=== PATIENT | female | born 1975 | race Caucasian/White ===

== ENCOUNTER 2021-05-13 11:57 | Emergency (ER) | payer BC, SELFPAY ==
[2021-05-13 12:20] VITALS: BP 124/65; PULSE 58; RESP 14; TEMP 36.4; O2SAT 99; BMI 29.1
--- NOTE | 2021-05-13 12:57 | CT_ITS ---
WS: [id number] CT LUMBAR SPINE, noncontrast. HISTORY: low back injury with pain TECHNIQUE: Contiguous 2.5 mm axial imaging are performed. Sagittal and coronal reformats are submitte d and reviewed. All CT scans at [facility] use at least one of these dose optimization techni ques: automated exposure control; mA and/or kV adjustment per patient size (includes targeted exams w here dose is matched to clinical indication); or iterative reconstruction. IV contrast: None DLP: 1925.02 mGy.cm COMPARISON: None available. Very mild curvature of the lumbar spine may be due to spasm. The posterior alignment is normal. No yaneli mbar spine fracture is identified. Pedicles are intact. L1-2: Normal. L2-3: Normal. L3-4: Mild disc bulging. No stenosis. L4-5: Mild annular disc bulging without a focal protrusion. Mild ligamentum flavum and facet arthriti s. There is very mild central and subarticular recess narrowing. Mild encroachment upon the traversin g L5 nerve roots. L5-S1: Very small central disc protrusion and mild annular disc bulging. There is very minimal disc c ontact on the S1 nerve roots bilaterally. Visualized retroperitoneum is negative. There is an IUD present. CT/CT lumbar spine wo con* [id number] IMPRESSION: 1. No lumbar spine fracture or high-grade stenosis. 2. Mild central and subarticular recess stenosis at L4-5. Slight encroachment upon the L5 nerve roots. 3. Very minimal disc contact on the S1 nerve roots bilaterally.
--- NOTE | 2021-05-13 12:58 | ED_ITS ---
HPI - Back Pain/Injury General: Chief Complaint: Back Pain/Injury Stated Complaint: back pain Time Seen by Provider: 05/13/21 12:29 History of Present Illness: Patient is a 45-year-old female comes to the ED with lower back injury. Injury occurred on Tuesday. She injured back when she was pulling a potted plant that was heavy out from her vehicle. She was leaning in when she went to pull on the pot she felt pain in the middle of the lower back. She has been having pain in the mid lower back for the past several days now and with no improvements. She has taken Celebrex for pain and it has not helped much. She denies any pain radiating down her legs. She says the pain s tays in the middle of her lower back. Denies any lower extremity weakness, pelvic anesthesia or bladder or bowel incontinence. Associated symptoms: Deny abdominal pain, chills, dysuria, fatigue, fever(s), hematuria, nausea or vomiting Review of Systems Const: Denies: fever(s), chills or fatigue Eyes: Denies: change in vision or eye discomfort ENMT: Denies: throat pain, odynophagia, nasal discharge or nasal congestion Card: Denies: chest pain, palpitations, edema, swelling of feet/ankles, dyspnea on exertion or orthopnea Resp: Denies: dyspnea, productive cough or non-productive cough GI: Denies: abdominal pain, nausea, vomiting, diarrhea, constipation or hematochezia : Denies: flank pain, dysuria or hematuria Musc: Reports: back pain; Denies: neck pain or extremity swelling Skin/Breast: Denies: rash or new lesions Neuro: Denies: headache(s), numbness in extremities or weakness in extremities PFSH ED PFSH: Medical History (Updated 05/14/21 @ 12:26 by SHYANNE Garcia) No pertinent family history Surgical History (Updated 05/14/21 @ 12:26 by SHYANNE Garcia) No pertinent past surgical history Physical Exam Const: COMMON NORMALS: no acute distress, patient oriented x3, healthy appearing and alert GENERAL APPEARANCE: cooperative and comfortable HENMT: COMMON NORMALS: normocephalic HEAD & SCALP: normocephalic MOUTH: Normal oral and palatal mucosa present THROAT: posterior oropharynx normal and uvula midline Neck/C-Spine: COMMON NORMALS: supple GENERAL: Yes normal visual inspection Resp: COMMON NORMALS: normal respiratory effort, No retractions, No use of accessory muscles and clear to auscultation bilaterally AUSCULTATION: clear to auscultation bilaterally Cardio: COMMON NORMALS: regular rate, regular rhythm, S1 normal heart sound present, S2 normal heart sound present, No gallops present (Cardio), No clicks present (Cardio), No murmurs present (Cardio) and Peripheral pulses 2+ throughout RATE: regular rate RHYTHM: regular rhythm HEART SOUNDS: S1 normal heart sound present and S2 normal heart sound present PERIPHERAL PULSES: Peripheral pulses 2+ throughout GI: COMMON NORMALS: Normal to inspection, nondistended, normoactive bowel sounds present, Soft to palpation, non-tender and no masses PALPATION: Yes Soft to palpation : COMMON NORMALS: Yes no CVA tenderness BLADDER/KIDNEY EXAM: Yes no CVA tenderness Back/Pelvis: COMMON NORMALS: no CVA tenderness LUMBAR SPINE/LOWER BACK: Yes pain with ROM, Yes lumbar spinal tenderness Lumbar spinal tenderness location: L4 and L5 and Yes paraspinal muscle tenderness Lumbar paraspinal muscle tenderness: bilateral Extremity: COMMON NORMALS: normal to inspection and no pedal edema Neuro: COMMON NORMALS: patient oriented x3 and moves all extremities SENSORIUM/ORIENTATION: Yes alert Skin: GENERAL SKIN EXAM: dry skin Course Vital Signs: Vital signs: Vital Signs Temperature 97.6 F 05/13/21 12:20 Pulse Rate 58 L 05/13/21 12:20 Respiratory Rate 14 05/13/21 12:20 Blood Pressure 124/65 05/13/21 12:20 Pulse Oximetry 99 05/13/21 12:20 MDM - Back Pain/Injury Medical Decision Making Patient is a 45-year-old female who comes to the ED with a lower back injury. Denies any cauda equina symptoms. Vitals are stable. Patient has some lumbar spinal tenderness and paraspinal muscle tenderness around L4 and L5. CT of lumbar spine showed no acute fractures or findings. Patient diagnosed with a strain of lumbar region and discharged home with a prescription for Celebrex and Flexeril. She was told to follow-up with her PCP in the next 7 to 10 days for reevaluation. Return to ED precautions given. Patient understood agree with plan. Labs Radiology Impressions Lumbar Spine CT 05/13/21 12:57 IMPRESSION: 1. No lumbar spine fracture or high-grade stenosis. 2. Mild central and subarticular recess stenosis at L4-5. Slight encroachment upon the L5 nerve roots. 3. Very minimal disc contact on the S1 nerve roots bilaterally. Discharge Plan Discharge Patient Disposition: Home Clinical Impression: Strain of lumbar region Qualifiers: Encounter type: initial encounter Qualified Code(s): S39.012A - Strain of muscle, fascia and tendon of lower back, initial encounter Condition: Stable Prescriptions: New Celebrex 100 mg capsule 100 mg PO BID PRN (Reason: pain) Qty: 30 0RF cyclobenzaprine 7.5 mg tablet 7.5 mg PO BID PRN (Reason: muscle spasm) Qty: 20 0RF Discharge Orders: Discharge ED (Routine); Ordered 05/13/21 Ordered By: Rip Cedeño Discharge Diet: Regular Discharge Activity: Increase activity as tolerated Patient Instructions: Low Back Strain (ED), Acute Low Back Pain (ED) Activity Restrictions/Additional Instructions: Follow-up with medical provider as directed in the next 5 to 7 days reevaluation.Take medications as prescribed. Apply cold pack on lower back and stretch lower back daily. Cyclobenzaprine is a muscle relaxer and can cause some drowsiness so take at night before going to bed. Return to the ER or your medical provider if condition worsens. Please read and understand discharge instructions. Thank you for choosing [facility] for your healthcare needs today. Please realize this is an emergency room and that we are providing you with a medical screening exam and this may not be complete and all inclusive of all the testing and or work up that you may need to determine your ailment or severity of your illness. It is very important that you follow up as instructed or that you return to the Emergency Department should you have concerns or if your condition changes or worsens in any way. Coding Level of Care Code ED Pricing Strategist for Delaney Zhang Exam Comprehensive
[2021-05-13] MEDS: ketorolac 60 mg/2 mL INJ IM (14:05)
[2021-05-13] MEDS: orphenadrine 30 mg/mL Inj 2 mL 60 MG IM (14:06)
== END 2021-05-13 14:35 | disposition home or self-care (01) ==
PROVIDERS: Emergency Provider Physician Assistant
DX: S33.5XXA Sprain of ligaments of lumbar spine, initial encounter (principal); X50.0XXA Overexertion from strenuous movement or load, initial encounter
CPT/HCPCS: 72131; 96372; 99285; J1885; J2360

== ENCOUNTER 2021-07-22 16:01 | Emergency (ER) | payer BC, SELFPAY ==
--- NOTE | 2021-07-22 16:03 | CTR_ITS ---
PROCEDURE INFORMATION: Exam: CT Cervical Spine Without Contrast Exam date and time: 07/22/2021 5:20 PM Age: 45 years old Clinical indication: Injury or trauma; Fall and other: From horse; Blunt trauma; Additional info: Horse accident TECHNIQUE: Imaging protocol: Computed tomography images of the cervical spine without contrast. Axial, coronal and sagittal reformatted images were created and reviewed. Radiation optimization: All CT scans at this facility use at least one of these dose optimization techniques: automated exposure control; mA and/or kV adjustment per patient size (includes targeted exams where dose is matched to clinical indication); or iterative reconstruction. COMPARISON: CT head wo con* [id number] 07/22/2021 5:17 PM RADIATION DOSE METRICS: Total DLP (mGy-cm): 581.11 FINDINGS: Bones/joints: Straightening of the normal cervical lordosis. No CT evidence of acute fracture, dislocation or subluxation. Alignment anatomic. Minimal levoscoliosis. Vertebral body heights maintained. Discs/Spinal canal/Neural foramina: Intervertebral disc spaces preserved. No significant spinal canal or neural foraminal stenosis. Lungs: Grossly unremarkable. Soft tissues: Grossly unremarkable. CT/CT cervical spin wo con* [id number] [address]ION: 1[address] No CT evidence of acute cervical spine traumatic injury. 2. Additional findings, as above.
--- NOTE | 2021-07-22 16:03 | CTR_ITS ---
PROCEDURE INFORMATION: Exam: CT Head Without Contrast Exam date and time: 07/22/2021 5:17 PM Age: 45 years old Clinical indication: Injury or trauma; Fall; Blunt trauma (contusions or hematomas); Additional info: Horse accident TECHNIQUE: Imaging protocol: Computed tomography of the head without contrast. Axial, coronal and sagittal reformatted images were created and reviewed. Radiation optimization: All CT scans at this facility use at least one of these dose optimization techniques: automated exposure control; mA and/or kV adjustment per patient size (includes targeted exams where dose is matched to clinical indication); or iterative reconstruction. COMPARISON: No relevant prior studies available. RADIATION DOSE METRICS: Total DLP (mGy-cm): 815.07 FINDINGS: Brain: No CT evidence of acute intracranial hemorrhage or acute territorial infarction. No significant mass effect or midline shift. Basal cisterns patent. Cerebral ventricles: Normal in size and configuration. Paranasal sinuses: Comminuted, mildly displaced fracture of the right superior orbital rim, extending to the right frontal sinus. Mild ethmoid mucosal thickening. Small right maxillary sinus polyp versus mucous retention cyst. Small amount of dependent blood products in the right maxillary sinus. Mastoid air cells: Grossly unremarkable. Bones/joints: No acute osseous abnormality. Soft tissues: Right periorbital soft tissue injury. CT/CT head wo con* [id number] [address]PRESSION: 1. No CT evidence of acute intracranial pathology. 2. Comminuted, mildly displaced fracture of the right superior orbital rim, extending to the right frontal sinus. 3. Additional findings, as above.
--- NOTE | 2021-07-22 16:03 | CTR_ITS ---
PROCEDURE INFORMATION: Exam: CT Maxillofacial Without Contrast Exam date and time: 07/22/2021 5:23 PM Age: 45 years old Clinical indication: Injury or trauma; Fall and other: From horse; Blunt trauma (contusions or hematomas); Head/scalp; Without loss of consciousness; Additional info: Horse accident TECHNIQUE: Imaging protocol: Computed tomography images of the face without contrast. Axial, coronal and sagittal reformatted images were created and reviewed. Radiation optimization: All CT scans at this facility use at least one of these dose optimization techniques: automated exposure control; mA and/or kV adjustment per patient size (includes targeted exams where dose is matched to clinical indication); or iterative reconstruction. COMPARISON: CT head wo con* [id number] 07/22/2021 5:17 PM RADIATION DOSE METRICS: Total DLP (mGy-cm): 764.56 FINDINGS: Orbital cavities: Globes intact. No retrobulbar abnormality. Bones/joints: Comminuted, mildly displaced fracture of the right superior orbital rim, extending to the right frontal sinus. Paranasal sinuses: Mild ethmoid mucosal thickening. Small right maxillary sinus polyp versus mucous retention cyst. Small amount of dependent blood products in the right maxillary sinus. Soft tissues: Right periorbital soft tissue injury. CT/CT facial bones wo con* [id number] IMPRESSION: 1. Comminuted, mildly displaced fracture of the right superior orbital rim, extending to the right frontal sinus. 2. Additional findings, as above.
[2021-07-22 16:09] VITALS: BP 134/98; PULSE 66; RESP 14; TEMP 36.8; O2SAT 100; BMI 29.1
--- NOTE | 2021-07-22 16:29 | ED_ITS ---
HPI - Head Injury General: Chief complaint: Head Injury Stated complaint: Head and eye kicked by horse, Bleeding bad Time Seen by Provider: 07/22/21 16:09 Source: patient Mode of arrival: ambulatory Limitations: no limitations History of Present Illness: 45-year-old female presents to the emergency room after an encounter with a horse. In talking to her it sounds like she was head butted essentially by the horse. Nurses notes that she was kicked in the triage section however when I talked to her specifically asked her directly if she was kicked her head and had it was more like a head but the horse reared up head caught her on her right thigh. She nearly blacked out but she was within enough to keep control the worst keep her from hurting her any further. She is also complaining of some right wrist pain. MD Complaint: head injury Onset (ago): minute(s) (30) Mechanism of Injury: other (Encounter large animal.) Place: home Loss of Consciousness: yes Location of injury: face Severity: moderate Radiation: none Other Injuries: none Associated symptoms: Deny amnesia, confusion, nausea, neck pain, numbness, sy ncope, tingling, vertigo, visual changes, vomiting or weakness Review of Systems Const: Denies: fever(s), chills, body aches, change in appetite, fatigue or malaise ENMT: Denies: throat pain, ear or mastoid pain, nasal discharge or nasal congestion Card: Denies: syncope Resp: Denies: dyspnea, productive cough or non-productive cough GI: Denies: nausea or vomiting : Denies: flank pain, difficulty voiding, dysuria, urinary frequency or urinary urgency Musc: Denies: neck pain Skin/Breast: Denies: rash or pruritus Neuro: Denies: vertigo or confusion PFS ED PFSH: Medical History No pertinent family history Surgical History No pertinent past surgical history Social History Smoking and tobacco status: never smoked Physical Exam Const: COMMON NORMALS: no acute distress GENERAL APPEARANCE: cooperative and comfortable ORIENTATION/CONSCIOUSNESS: Yes awake, Yes oriented to person, Yes oriented to place and Yes oriented to time HENMT: COMMON NORMALS: normocephalic, atraumatic, hearing grossly normal bilaterally, external ears normal, EAC's normal, TM's normal bilaterally, Normal nasal mucous membranes and turbinates present, moist oral mucous membranes and oropharynx normal HEAD & SCALP: normocephalic and atraumatic NOSE: Normal nasal mucous membranes and turbinates present EXTERNAL EAR: Yes external ears normal EXTERNAL AUDITORY CANAL: EAC's normal TYMPANIC MEMBRANE: TM's normal bilaterally Eye: COMMON NORMALS: Equal, round and reactive pupils present, EOMs intact bilaterally, conjunctivae normal and no scleral icterus CONJUNCTIVA: Yes conjunctivae normal PUPIL: Yes Equal, round and reactive pupils present Neck/C-Spine: COMMON NORMALS: full ROM, no lymphadenopathy, supple and no JVD Resp: COMMON NORMALS: normal respiratory effort, No retractions, No use of accessory muscles and clear to auscultation bilaterally AUSCULTATION: clear to auscultation bilaterally Cardio: COMMON NORMALS: no JVD, regular rate, regular rhythm and No murmurs pr esent (Cardio) RATE: regular rate RHYTHM: regular rhythm GI: COMMON NORMALS: Soft to palpation and No hepatosplenomegaly present AUSCULTATION: Yes normoactive bowel sounds PALPATION: Yes Soft to palpation, No Tenderness to palpation present (GI), No Guarding due to palpation present (GI) and Yes No hepatosplenomegaly present Extremity: COMMON NORMALS: normal to inspection, capillary refill normal, no clubbing, cyanosis or edema, no calf tenderness and no pedal edema Neuro: SENSORIUM/ORIENTATION: Yes oriented to person, Yes oriented to place and Yes oriented to time Skin: COMMON NORMALS: no rashes or lesions noted GENERAL SKIN EXAM: no rashes or lesions noted Procedures Laceration Laceration 1: Site: face (Right upper eyelid) Side (If applicable): right Size (cm): 3 Description: irregular Depth: simple, single layer Pre-repair: irrigated extensively Skin layer closed with: nylon Size (cm): 6-0 Technique: simple, interrupted Procedural Sedation Indication: laceration repair IV Etomidate dose (mg): 10 Patient Tolerated Procedure: well Complications: none Course Vital Signs: Vital signs: Vital Signs Temperature 98.2 F 07/22/21 16:09 Pulse Rate 66 07/22/21 16:09 Respiratory Rate 12 07/22/21 18:37 Blood Pressure 134/98 07/22/21 16:09 Pulse Oximetry 100 07/22/21 18:37 MDM - Head Injury Medcial Decision Making Patient reports she had problems with stitches in the past and was very worried about getting them. I was concerned about instilling lidocaine in the area and distorting the tissue making it difficult to approximate well laceration repaired under conscious sedation with etomidate patient tolerated well wound care instructions given she does have a supraorbital ridge fractures we will have her follow-up with ENT and ophthalmology. Lab Data : 07/22/21 16:32 07/22/21 16:32 Radiology Impressions Cervical Spine CT 07/22/21 16:03 IMPRESSION: 1. No CT evidence of acute cervical spine traumatic injury. 2. Additional findings, as above. Face CT 07/22/21 16:03 IMPRESSION: 1. Comminuted, mildly displaced fracture of the right superior orbital rim, extending to the right frontal sinus. 2. Additional findings, as above. Head CT 07/22/21 16:03 IMPRESSION: 1. No CT evidence of acute intracranial pathology. 2. Comminuted, mildly displaced fracture of the right superior orbital rim, extending to the right frontal sinus. 3. Additional findings, as above. Wrist X-Ray 07/22/21 16:35 IMPRESSION: No acute findings. Finger X-Ray 07/22/21 18:01 IMPRESSION: Thumb metacarpal fracture, as described above. Laboratory Results WBC 7.1 10^3/uL (4.0-10.0) 07/22/21 16:32 RBC 4.50 10^6/uL (4.1-5.3) 07/22/21 16:32 Hgb 13.9 g/dL (11.5-15.3) 07/22/21 16: Hct 42.3 % (37.0-47.0) 07/22/21 16: MCV 94.0 fl (81-99) 07/22/21 16:32 MCH 30.9 pg (28.0-34.0) 07/22/21 16: MCHC 32.9 g/dL (30.0-36.0) 07/22/21 16: RDW 12.0 % (12.1-15.1) L 07/22/21 16:32 Plt Count 214 10^3/cmm (130-400) 07/22/21 16:32 MPV 9.9 fL (7.4-10.4) 07/22/21 16:32 Neut % (Auto) 65.6 % 07/22/21 16:32 Lymph % (Auto) 28.6 % 07/22/21 16:32 [place] % (Auto) 4.8 % 07/22/21 16:32 Eos % (Auto) 0.3 % 07/22/21 16:32 Baso % (Auto) 0.4 % 07/22/21 16:32 Neut # (Auto) 4.64 10^3/uL (1.8-7.7) 07/22/21 16:32 Lymph # (Auto) 2.0 10^3/uL (0.8-4.8) 07/22/21 16:32 [place] # (Auto) 0.3 10^3/uL (0.2-0.9) 07/22/21 16:32 Eos # (Auto) 0.0 10^3/uL (0.0-0.8) 07/22/21 16:32 Baso # (Auto) 0.0 10^3/uL (0.0-0.1) 07/22/21 16:32 Nucleated RBC % (auto) 0 % 07/22/21 16: Nucleated RBCs # 0.0 /100WBC 07/22/21 16:32 Sodium 138 mmol/L (136-145) 07/22/21 16:32 Potassium 3.8 mmol/L (3.5-5.1) 07/22/21 16:32 Chloride 101 mmol/L (98-107) 07/22/21 16:32 Carbon Dioxide 25 mmol/L (22-29) 07/22/21 16:32 Anion Gap 15.8 (5-19) 07/22/21 16:32 BUN 11 mg/dL (6-20) 07/22/21 16:32 Creatinine 0.7 mg/dL (0.5-0.9) 07/22/21 16:32 GFR Calculation 90.9 mL/min (90-130) 07/22/21 16:32 Glucose 123 mg/dL (65-115) H 07/22/21 16:32 Calculated Osmolality 287 mOsm/kg (285-295) 07/22/21 16:32 Calcium 9.2 mg/dL (8.5-10.5) 07/22/21 16:32 Total Bilirubin 0.7 mg/dL (0.15-1.2) 07/22/21 16:32 AST 22 U/L (0-32) 07/22/21 16:32 ALT 13 U/L (0-33) 07/22/21 16:32 Alkaline Phosphatase 63 IU/L (35-105) 07/22/21 16:32 Total Protein 7.0 g/dL (6.6-8.7) 07/22/21 16:32 Albumin 4.3 g/dL (3.5-5.2) 07/22/21 16:32 Globulin 2.7 g/dL (1.3-4.6) 07/22/21 16:32 Discharge Plan Discharge Patient Disposition: Home Clinical Impression: Closed head injury, Eyelid laceration, right, Closed fracture of supraorbital rim, First metacarpal bone fracture, Abrasion, corneal Condition: Stable Prescriptions: New hydrocodone-acetaminophen 5-325 mg tablet 1 tab PO Q6H PRN (Reason: pain) Qty: 15 0RF mupirocin 2 % ointment 1 applic topical BID Qty: 22 0RF No Action (DME) Fast form thumb Spika See Rx Instructions .Route .MEDSUPPLY Qty: 1 0RF Rx Instructions: As directed celecoxib [Celebrex] 100 mg capsule 100 mg PO BID PRN (Reason: pain) Qty: 30 0RF celecoxib 200 mg capsule 200 mg PO DAILY PRN (Reason: Pain) 0RF Discharge Orders: Discharge ED (Routine); Ordered 07/22/21 Ordered By: Jewel Sheehan Discharge Diet: Usual diet Discharge Activity: Limit activity as instructed Activity Restrictions/Additional Instructions: No use of the right hand until released by orthopedics. business strategy manager Em el for you to see ophthalmology ENT and orthopedics. Use topical antibiotic ointment on the abrasions and the upper eyelid laceration until healed. The sutures should be removed from the upper eyelid in 5 to 7 days. Coding Level of Care Code ED [employer] Laborer for Delaney Zhang
--- NOTE | 2021-07-22 16:35 | XRR_ITS ---
PROCEDURE INFORMATION: Exam: XR Right Wrist Exam date and time: 07/22/2021 4:39 PM Age: 45 years old Clinical indication: Injury or trauma; Fall; Blunt trauma (contusions or hematomas); Wrist; Right; Additional info: Pain TECHNIQUE: Imaging protocol: XR Right wrist. Views: 3 or more views. COMPARISON: No relevant prior studies available. FINDINGS: Bones/joints: Negative for acute bony abnormality Soft tissues: Normal. XR/XR wrist RT min 3V* [id number] IMPRESSION: No acute findings.
[2021-07-22 16:46] LABS: Basophils % 0.4 %; Eosinophils % 0.3 %; Hematocrit 42.3 % (37.0-47.0); Hemoglobin 13.9 g/dL (11.5-15.3); Lymphocytes % 28.6 %; Mean Corpuscular HGB Conc 32.9 g/dL (30.0-36.0); Mean Corpuscular Hemoglobin 30.9 pg (28.0-34.0); Mean Platelet Volume 9.9 fL (7.4-10.4); Monocytes # 0.3 10^3/uL (0.2-0.9); Monocytes % 4.8 %; Neutrophils # 4.64 10^3/uL (1.8-7.7); Neutrophils % 65.6 %; Nucleated Red Blood Cells % 0 %; Platelet Count 214 10^3/cmm (130-400); White Blood Count 7.1 10^3/uL (4.0-10.0)
[2021-07-22 17:13] LABS: Alanine Aminotransferase 13 U/L (0-33); Albumin Level 4.3 g/dL (3.5-5.2); Alkaline Phosphatase 63 IU/L (35-105); Aspartate Amino Transferase 22 U/L (0-32); Blood Urea Nitrogen 11 mg/dL (6-20); Calcium 9.2 mg/dL (8.5-10.5); Carbon Dioxide 25 mmol/L (22-29); Chloride 101 mmol/L (98-107); Globulin 2.7 g/dL (1.3-4.6); Glomerular Filtration Rate 90.9 mL/min (90-130); Glucose 123 mg/dL (65-115); Osmolality Calculated 287 mOsm/kg (285-295); Sodium 138 mmol/L (136-145); Total Bilirubin 0.7 mg/dL (0.15-1.2)
[2021-07-22 17:17] LABS: Anion Gap 15.8 (5-19); Potassium 3.8 mmol/L (3.5-5.1)
--- NOTE | 2021-07-22 18:01 | XRR_ITS ---
PROCEDURE INFORMATION: Exam: XR Right Finger(s) Exam date and time: 07/22/2021 6:05 PM Age: 45 years old Clinical indication: Injury or trauma; Other: Horse accident; Blunt trauma (contusions or hematomas); Finger; Right; Thumb TECHNIQUE: Imaging protocol: XR Right fingers. Views: Minimum 2 views. COMPARISON: CR (UP EXM, ) 07/22/2021 4:39 PM FINDINGS: Bones/joints: Mildly displaced intra-articular fracture through the volar base of the thumb metacarpal. No dislocation. Soft tissues: Soft tissue swelling at the fracture site. XR/XR finger RT min 2V [id number] IMPRESSION: Thumb metacarpal fracture, as described above.
[2021-07-22 18:37] VITALS: RESP 12; O2SAT 100
[2021-07-22] MEDS: fentaNYL 50 mcg/mL INJ 2mL IVP (18:37)
[2021-07-22] MEDS: midazolam 1 mg/mL INJ 2 mL 2 MG IVP (18:37)
[2021-07-22] MEDS: midazolam 1 mg/mL INJ 2 mL 2 MG (18:48)
[2021-07-22] MEDS: sulfamethoxazole-trimeth DS 160-800 mg Tablet 1 TAB PO (20:32)
[2021-07-22] MEDS: HYDROcodone-acetaminophen 5-325 mg Tablet 1 TAB PO (20:32)
[2021-07-22] MEDS: tobramycin-dexametha Op Susp 5 mL Btl 2 DROP EYE-RIGHT (21:00)
--- NOTE | 2021-07-23 11:44 | DCPLANNER ---
Addendum entered by Peyton Amador 10/06/21 17:29: Patient attended both appointments with ENT and with ortho. Addendum entered by Peyton Amador 07/24/21 12:42: Patient has a follow up appointment scheduled for Wednesday, July 28, 2021 at 10:[address] Caruso at ENT. Clinic will call patient with appointment information. Patient has a follow up appointment scheduled for Wednesday, July 28, 2021 at 2:[address] Bar at ortho. Clinic will call patient with appointment information. Original Note: records manager had message to schedule a follow up appointment for patient with ortho. records manager sent patients information to the front office staff at ortho. Patients information will be printed and reviewed. Clinic will call patient with appointment information. records manager had message to schedule a follow up appointment for patient with ENT. records manager sent patients information to the front office staff at ENT. Patients information will be printed and reviewed. Clinic will call patient with appointment information.
--- NOTE | 2021-07-23 11:49 | DCPLANNER ---
respiratory services manager had message to schedule a follow up appointment for patient with Dr. Sanchez. respiratory services manager faxed patients information to the office of Dr. Sanchez. Patients information will be reviewed, clinic will call patient with appointment information.
== END 2021-07-22 21:21 | disposition home or self-care (01) ==
PROVIDERS: Emergency Provider Family Medicine
DX: S06.9X9A Unspecified intracranial injury with loss of consciousness of unspecified duration, initial encounter (principal); S02.81XA Fracture of other specified skull and facial bones, right side, initial encounter for closed fracture; S62.201A Unspecified fracture of first metacarpal bone, right hand, initial encounter for closed fracture; S05.01XA Injury of conjunctiva and corneal abrasion without foreign body, right eye, initial encounter; W55.12XA Struck by horse, initial encounter; M25.531 Pain in right wrist
CPT/HCPCS: 12013; 70450; 70486; 72125; 73110; 73140; 80053; 85025; 96374; 99152; 99284; J2250; J3010

== ENCOUNTER 2021-07-28 16:40 | Outpatient (CLI) | payer BC, SELFPAY | END 2021-07-28 16:41 | disposition home or self-care (01) | LOC: SPT 16:41 | PROVIDERS: Visit Provider Orthopaedic Surgery | DX: Z46.89 Encounter for fitting and adjustment of other specified devices (principal); S62.231D Other displaced fracture of base of first metacarpal bone, right hand, subsequent encounter for fracture with routine healing; X58.XXXD Exposure to other specified factors, subsequent encounter | CPT/HCPCS: 97760; L3984 ==

== ENCOUNTER → 2021-08-19 10:12 | Outpatient (BNVA) | payer BC, SELFPAY | PROVIDERS: Visit Provider Orthopaedic Surgery | DX: S62.231A Other displaced fracture of base of first metacarpal bone, right hand, initial encounter for closed fracture (principal); X58.XXXA Exposure to other specified factors, initial encounter | CPT/HCPCS: 73130 ==

== ENCOUNTER → 2021-10-12 08:37 | Outpatient (BNVA) | payer BC, SELFPAY | PROVIDERS: Visit Provider Podiatrist Foot & Ankle Surgery | DX: M84.375A Stress fracture, left foot, initial encounter for fracture (principal); X58.XXXA Exposure to other specified factors, initial encounter; M79.672 Pain in left foot | CPT/HCPCS: 73630 ==

== ENCOUNTER → 2021-10-14 11:14 | Outpatient (BNVA) | payer BC, SELFPAY | PROVIDERS: Visit Provider Orthopaedic Surgery | DX: X50.0XXA Overexertion from strenuous movement or load, initial encounter (principal); S62.231A Other displaced fracture of base of first metacarpal bone, right hand, initial encounter for closed fracture | CPT/HCPCS: 73130 ==

== ENCOUNTER → 2022-03-08 10:00 | Outpatient (BNVA) | payer BC, SELFPAY | PROVIDERS: Visit Provider Obstetrics & Gynecology | DX: Z30.9 Encounter for contraceptive management, unspecified (principal); Z12.39 Encounter for other screening for malignant neoplasm of breast | CPT/HCPCS: 87070; 87205 ==

== ENCOUNTER 2022-04-06 10:09 | Outpatient (CLI) | payer BC, SELFPAY ==
--- NOTE | 2022-04-06 10:17 | MM_ITS ---
WS: [id number] BILATERAL SCREENING DIGITAL TOMOSYNTHESIS MAMMOGRAM WITH CAD HISTORY: SCREEN COMPARISON: 12/17/2020, 12/05/2020 and 07/03/2018 Bilateral CC and MLO views with tomosynthesis and synthetic mammography submitted. Computer aided det ection analyzed. Breast composition: There are scattered areas of fibroglandular density. No suspicious masses, microc alcifications or architectural distortion. Benign calcifications in each breast. MM/[place] [id number] IMPRESSION: BI-RADS: 2-Benign FOLLOW UP: 1 Year Follow-up
== END 2022-04-06 10:10 | disposition home or self-care (01) ==
LOC: RAD 10:10
PROVIDERS: PCP Family Medicine; Visit Provider Obstetrics & Gynecology
DX: Z12.31 Encounter for screening mammogram for malignant neoplasm of breast (principal)
CPT/HCPCS: 77063; 77067